=== PATIENT | female | born 1970 | race African-American/Black ===

== ENCOUNTER 2017-03-02 16:03 | Emergency (ER) | payer MEDICAID ==
--- NOTE | 2017-03-02 17:24 | ER Document Report ---
ED Medical Screen (RME) - General Chief Complaint: Shortness Of Breath Stated Complaint: DIFFICULTY BREATHING Time Seen by Provider: 03/02/17 17:16 Mode of Arrival: Ambulatory Information source: Patient TRAVEL OUTSIDE OF THE [place] IN LAST 30 DAYS: No - HPI Patient complains to provider of: Shortness of breath, generalized weakness, midsternal chest pain Onset: This morning Onset/Duration: Gradual Quality of pain: Achy Severity: Moderate Associated Symptoms: Body/muscle aches, Chest pain, Dizzy/lightheaded, Shortness of breath, Weakness Notes: 03/02/17 17:23 It is a 46-year-old female who presents to the emergency room complaining of shortness of breath, dyspnea on exertion, lightheadedness, nonproductive cough, headache, midsternal chest pain, has a history of iron deficiency anemia with transfusions, last time she was transfused with back in June, she had outpatient labs done with Dr. Marsh her manufacturer recently and they are in the process of setting her up for another outpatient transfusion, however symptoms worsened today and she was sent to the emergency room by Dr. Rodriguez for further evaluation and treatment - Related Data Allergies/Adverse Reactions: No Known Allergies Allergy (Verified 03/02/17 16:07) Past Medical History - Past Medical History Cardiac Medical History: Reports: Hx Hypercholesterolemia, Hx Hypertension Neurological Medical History: Reports: Hx Migraine Renal/ Medical History: Denies: Hx Peritoneal Dialysis - Immunizations Hx Diphtheria, Pertussis, Tetanus Vaccination: Yes - utd Physical Exam - Vital signs Vitals: Temp Pulse Resp BP Pulse Ox 98.7 F 91 20 107/65 100 03/02/17 16:07 03/02/17 16:07 03/02/17 16:07 03/02/17 16:07 03/02/17 16:07 Course - Vital Signs Vital signs: Temp Pulse Resp BP Pulse Ox 98.7 F 91 20 107/65 100 03/02/17 16:07 03/02/17 16:07 03/02/17 16:07 03/02/17 16:07 03/02/17 16:07
[2017-03-02 18:40] LABS: ABSOLUTE BASOPHILS # (AUTO) 0.1 10^3/uL (0.0-0.2); ABSOLUTE EOSINOPHILS # (AUTO) 0.1 10^3/uL (0.0-0.6); ABSOLUTE MONOCYTES (AUTO) 0.7 10^3/uL (0.1-1.4); ABSOLUTE NEUT (AUTO) 10.1 10^3/uL (1.7-8.2); BASOPHILS % (AUTO) 0.9 % (0-2); EOSINOPHILS % (AUTO) 0.9 % (0-6); HEMATOCRIT 28.8 % (36.0-47.0); HEMOGLOBIN 8.3 g/dL (12.0-15.5); HGB HCT DIFFERENCE -3.9; LYMPHOCYTES % (AUTO) 21.3 % (13-45); MEAN CORPUSCULAR HEMOGLOBIN 18.2 pg (27.0-33.4); MONOCYTES % (AUTO) 5.2 % (3-13); RED BLOOD COUNT 4.59 10^6/uL (3.72-5.28); RED CELL DISTRIBUTION WIDTH 18.7 % (11.5-14.0); SEGMENTED NEUTROPHILS % (AUTO) 71.7 % (42-78); WHITE BLOOD COUNT 14.1 10^3/uL (4.0-10.5)
[2017-03-02 18:54] LABS: ALANINE AMINOTRANSFERASE 21 U/L (9-52); ALBUMIN 3.9 g/dL (3.5-5.0); ALKALINE PHOSPHATASE 78 U/L (38-126); ANION GAP 12 (5-19); ASPARTATE AMINO TRANSFERASE 18 U/L (14-36); BILIRUBIN,DIRECT 0.3 mg/dL (0.0-0.4); BILIRUBIN,TOTAL 0.3 mg/dL (0.2-1.3); BLOOD UREA NITROGEN 18 mg/dL (7-20); CALCIUM 9.5 mg/dL (8.4-10.2); CARBON DIOXIDE 24 mmol/L (22-30); CHLORIDE 100 mmol/L (98-107); CREATINE KINASE 103 U/L (30-135); CREATININE RESULT 0.96 mg/dL (0.52-1.25); GLUCOSE 155 mg/dL (75-110); POTASSIUM 4.2 mmol/L (3.6-5.0); SODIUM 135.9 mmol/L (137-145); TOTAL PROTEIN 7.6 g/dL (6.3-8.2)
[2017-03-02 18:58] LABS: ANISOCYTOSIS 2+; HELMET CELLS SLIGHT; HYPOCHROMASIA 3+; MICROCYTOSIS 3+; OVALOCYTES 1+; PLATELET CLUMPS PRESENT; POLYCHROMASIA SLIGHT; TARGET CELLS SLIGHT
[2017-03-02 19:00] LABS: MEAN CORPUSCULAR VOLUME 63 fl (80-97); POIKILOCYTOSIS SLIGHT
[2017-03-02 19:01] LABS: TOXIC GRANULATION SLIGHT
[2017-03-02 19:07] LABS: CREATINE KINASE MB < 0.22 ng/mL (<4.55); TROPONIN I < 0.012 ng/mL
--- NOTE | 2017-03-02 19:16 | RADIOLOGY REPORT (SQ) ---
EXAM DESCRIPTION: CHEST PA/LAT COMPLETED DATE/TIME: 03/02/2017 6:57 pm REASON FOR STUDY: sob COMPARISON: 05/05/2013 EXAM PARAMETERS: NUMBER OF VIEWS: two views TECHNIQUE: Digital Frontal and Lateral radiographic views of the chest acquired. RADIATION DOSE: NA LIMITATIONS: none FINDINGS: LUNGS AND PLEURA: No acute opacities, masses or pneumothorax. No pleural effusion. MEDIASTINUM AND HILAR STRUCTURES: No masses or contour abnormalities. HEART AND VASCULAR STRUCTURES: Heart normal size. No evidence for failure. BONES: No acute findings. HARDWARE: None in the chest. OTHER: No other significant finding. IMPRESSION: No acute findings. TECHNICAL DOCUMENTATION: JOB ID: [id number] [employer]- All Rights Reserved
[2017-03-02] MEDS ORDERED: PROCHLORPERAZINE EDISYLATE INJ 10 MG/2 ML VIAL IV ONE (19:20)
[2017-03-02] MEDS ORDERED: DIPHENHYDRAMINE HCL 50 MG/ML VIAL IV ONE (19:20)
[2017-03-02] MEDS ORDERED: KETOROLAC TROMETHAMINE INJ/PF 30 MG/1 ML SDV IV ONE (19:20)
[2017-03-02] MEDS ORDERED: NORMAL SALINE 1000 ML 1,000 ML IV ONE (19:21)
--- NOTE | 2017-03-02 19:23 | ER Document Report ---
ED General - General Chief Complaint: Shortness Of Breath Stated Complaint: DIFFICULTY BREATHING Time Seen by Provider: 03/02/17 17:16 Mode of Arrival: Ambulatory Notes: Patient is a 46-year-old female who presents with 1 week of a headache that she describes as a severe, constant, bitemporal throbbing headache. Nothing improves or worsens her headache. States that this is a very typical headache for her that was gradual in onset and has worsened since that time. She denies any focal weakness, numbness or altered mental status. No fever. She also notes that she has had intermittent shortness of breath it is not present at the time of my assessment. Denies any chest pain, syncope, or exertional dyspnea. She saw her primary care doctor today and was referred to the emergency department. She has no prior history of DVT or pulmonary embolus. No history of cardiac disease. No history of aortic disease or connective tissue disorders. TRAVEL OUTSIDE OF THE [place] IN LAST 30 DAYS: No - Related Data Allergies/Adverse Reactions: No Known Allergies Allergy (Verified 03/02/17 16:07) Past Medical History - General Information source: Patient - Social History Smoking Status: Never Smoker Chew tobacco use (# tins/day): No Frequency of alcohol use: None Drug Abuse: None Lives with: Family Family History: CAD, Hypertension Patient has suicidal ideation: No Patient has homicidal ideation: No - Past Medical History Cardiac Medical History: Reports: Hx Hypercholesterolemia, Hx Hypertension Neurological Medical History: Reports: Hx Migraine Renal/ Medical History: Denies: Hx Peritoneal Dialysis Surgical Hx: Negative - Immunizations Hx Diphtheria, Pertussis, Tetanus Vaccination: Yes - utd Review of Systems - Review of Systems Notes: Constitutional: Negative for fever. HENT: Negative for sore throat. Eyes: Negative for visual changes. Cardiovascular: Negative for chest pain. Respiratory: Positive for shortness of breath. Gastrointestinal: Negative for abdominal pain, vomiting or diarrhea. Genitourinary: Negative for dysuria. Musculoskeletal: Negative for back pain. Skin: Negative for rash. Neurological: Positive for headaches, negative for weakness or numbness. 10 point ROS negative except as marked above and in HPI. Physical Exam - Vital signs Vitals: Temp Pulse Resp BP Pulse Ox 98.7 F 91 20 107/65 100 03/02/17 16:07 03/02/17 16:07 03/02/17 16:07 03/02/17 16:07 03/02/17 16:07 Interpretation: Normal Notes: PHYSICAL EXAMINATION: GENERAL: Well-appearing, well-nourished and in no acute distress. HEAD: Atraumatic, normocephalic. EYES: Pupils equal round and reactive to light, extraocular movements intact, sclera anicteric, conjunctiva are normal. ENT: nares patent, oropharynx clear without exudates. Moist mucous membranes. NECK: Normal range of motion, supple without lymphadenopathy LUNGS: Breath sounds clear to auscultation bilaterally and equal. No wheezes rales or rhonchi. HEART: Regular rate and rhythm without murmurs ABDOMEN: Soft, nontender, normoactive bowel sounds. No guarding, no rebound. No masses appreciated. EXTREMITIES: Normal range of motion, no pitting or edema. No cyanosis. NEUROLOGICAL: Face symmetric. Tongue protrudes midline. Extraocular motions intact. Pupils are 2 mm and equally reactive. Normal speech, normal gait. 5 out of 5 strength in both the distal and proximal upper and lower extremities bilaterally. Sensation is grossly intact throughout. Finger to nose testing normal. Pronator drift normal. PSYCH: Normal mood, normal affect. SKIN: Warm, Dry, normal turgor, no rashes or lesions noted. Course - Re-evaluation Re-evalutation: 03/02/17 19:21 Patient presents with multiple complaints including shortness of breath, lightheadedness, and a migraine headache. Her shortness of breath: Chest x-ray is clear without evidence of a pneumothorax or an acute infiltrate. EKG is unremarkable and a troponin is negative. Her vital signs, clinical history and absence of risk factors make an acute pulmonary embolus or aortic dissection highly unlikely. Patient PERC criteria negative. Symptoms been ongoing for the past 1 week. The headache appears to be most consistent with tension versus migrainous type headache. Headache was not maximal in onset, patient has no focal neurologic deficits, no nuchal rigidity, vital signs within normal limits, no papilledema, and patient is overall well in appearance. Patient states that this is identical to her prior headaches which she has an almost a daily basis. Based on clinical history and examination I do not suspect an acute subarachnoid hemorrhage, dural venous sinus thrombosis, acute meningitis, or intercranial mass. Given my low clinical suspicion for any acute life- threatening etiology, I do not feel advanced neuro imaging or laboratory testing is indicated at this time. Will proceed with headache cocktail and reassess. 03/02/17 20:58 Patient has had complete resolution of all of her symptoms including her shortness of breath and headache. She remains without neurologic deficits. Vitals remained within normal limits at this time. She remains without tachypnea or tachycardia at time of my repeat assessment. I have informed her about her anemia and she already has plans scheduled for outpatient iron infusions. She does follow with hematology and has had elevated platelets in the past. She does not have a transfusion requirement at this time. At this time will discharge with return precautions and follow-up recommendations. Verbal discharge instructions given a the bedside and opportunity for questions given. Medication warnings reviewed. Patient is in agreement with this plan and has verbalized understanding of return precautions and the need for primary care follow-up in the next 24-72 hours. - Vital Signs Vital signs: Temp Pulse Resp BP Pulse Ox 98.7 F 91 22 H 122/61 100 03/02/17 16:07 03/02/17 16:07 03/02/17 19:00 03/02/17 21:00 03/02/17 21:01 - Laboratory Result Diagrams: 03/02/17 18:23 03/02/17 18:23 Laboratory results interpreted by me: 03/02/17 03/02/17 18:23 18:23 WBC 14.1 H Hgb 8.3 L Hct 28.8 L MCV 63 L MCH 18.2 L MCHC 29.0 L RDW 18.7 H Plt Count 776 H Absolute Neutrophils 10.1 H Sodium 135.9 L Glucose 155 H - Diagnostic Test Radiology reviewed: Image reviewed, Reports reviewed Radiology results interpreted by me: 03/02/17 21:00 Chest x-ray: No acute infiltrate or pneumothorax - EKG Interpretation by Me Additional EKG results interpreted by me: 03/02/17 21:01 Normal sinus rhythm. Rate 90. No ST elevations or depressions. QTC is 470. Discharge - Discharge Clinical Impression: Thrombocytosis Iron deficiency anemia Qualifiers: Iron deficiency anemia type: other iron deficiency Qualified Code(s): D50.8 - Other iron deficiency anemias Migraine headache Qualifiers: Migraine type: unspecified Status migrainosus presence: with status migrainosus Intractability: not intractable Qualified Code(s): G43.901 - Migraine, unspecified, not intractable, with status migrainosus Condition: Good Disposition: HOME, SELF-CARE Additional Instructions: You have been seen in the Emergency Department (ED) for a headache. Please use Tylenol (acetaminophen) or Motrin (ibuprofen) as needed for symptoms, but only as written on the box. As we have discussed, please follow up with your primary care doctor as soon as possible regarding today's ED visit and your headache symptoms. Call your doctor or return to the ED if you have a worsening headache, sudden and severe headache, confusion, slurred speech, facial droop, weakness or numbness in any arm or leg, extreme fatigue, or other symptoms that concern you. Your blood tests do show that your blood count is low but not a level where you need to get a blood transfusion. However it is very important that you follow- up with your solution developer regarding your low red blood cell count as well as your elevated platelets that you have had in the past. Referrals: HERBERT ASHBY MD [Primary Care Provider] - Follow up tomorrow
[2017-03-02 21:18] VITALS: BP 122/61
--- NOTE | 2017-03-02 23:43 | EKG REPORT ---
SEVERITY:- NORMAL ECG - SINUS RHYTHM : Confirmed by: Konrad Mclean 02-Mar-2017 23:42:43
[2017-03-05 15:58] LABS: PATH REVIEW PATHOLOGIST REVIEWED
== END 2017-03-02 21:32 | disposition home or self-care (01) ==
LOC: ER 16:03
DX: D47.3 Essential (hemorrhagic) thrombocythemia (principal); D50.8 Other iron deficiency anemias; R06.02 Shortness of breath; G43.901 Migraine, unspecified, not intractable, with status migrainosus; E78.00 Pure hypercholesterolemia, unspecified; I10 Essential (primary) hypertension
CPT/HCPCS: 93005; 99285; 96361; 96374; 96375; 36415; 82553; 82550; 85025; 80053; 84484; 83880; 71020; 93010; J1200; J1885; J0780; J7030

== ENCOUNTER 2017-03-27 08:00 | Outpatient (CLI) | payer MEDICAID ==
[~2017-03-27 08:00] MED LIST: ACETAMINOPHEN 325 MG TABLET PO PRN; DIPHENHYDRAMINE HCL 50 MG/ML VIAL IV PRN; IRON DEXTRAN COMPLEX 25 MG in NORMAL SALINE 100 ML IV PRN; IRON DEXTRAN COMPLEX 775 MG in NORMAL SALINE 500 ML IV PRN; NORMAL SALINE 250 ML IV PRN
[2017-03-27 10:14] VITALS: BP 109/81
== END 2017-03-27 14:17 | disposition home or self-care (01) ==
LOC: II 08:00 → 5TH 08:04 → II 14:17
PROVIDERS: ATTEND Internal Medicine
PROC: 3E033GC Introduction of Other Therapeutic Substance into Peripheral Vein, Percutaneous Approach (ICD-10-PCS; principal; 2017-03-27)
DX: D50.9 Iron deficiency anemia, unspecified (principal)
CPT/HCPCS: 96367; 96375; J3490; J1200; J1750; J7040; 96365; 96366

== ENCOUNTER 2017-04-03 08:07 | Outpatient (CLI) | payer MEDICAID ==
[~2017-04-03 08:07] MED LIST changes: -IRON DEXTRAN COMPLEX 25 MG in NORMAL SALINE 100 ML IV PRN; -IRON DEXTRAN COMPLEX 775 MG in NORMAL SALINE 500 ML IV PRN; +IRON DEXTRAN COMPLEX 800 MG in NORMAL SALINE 500 ML IV PRN
[2017-04-03 09:00] VITALS: BP 126/69
== END 2017-04-03 12:40 | disposition home or self-care (01) ==
LOC: II 08:07 → 5TH 08:08 → II 12:40
PROVIDERS: ATTEND Internal Medicine
PROC: 3E033GC Introduction of Other Therapeutic Substance into Peripheral Vein, Percutaneous Approach (ICD-10-PCS; principal; 2017-04-03)
DX: D50.0 Iron deficiency anemia secondary to blood loss (chronic) (principal)
CPT/HCPCS: 96365; 96366; 96374; 96360; J3490; J1200; J1750; J7040; 96375

== ENCOUNTER 2017-04-10 08:38 | Outpatient (CLI) | payer MEDICAID ==
[~2017-04-10 08:38] MED LIST changes: +IRON DEXTRAN COMPLEX 300 MG in NORMAL SALINE 500 ML IV PRN
[2017-04-10 09:29] VITALS: BP 129/67
== END 2017-04-10 13:08 | disposition home or self-care (01) ==
LOC: II 08:38 → 5TH 08:42 → II 13:08
PROVIDERS: ATTEND Internal Medicine
PROC: 3E033GC Introduction of Other Therapeutic Substance into Peripheral Vein, Percutaneous Approach (ICD-10-PCS; principal; 2017-04-10)
DX: D50.0 Iron deficiency anemia secondary to blood loss (chronic) (principal)
CPT/HCPCS: 96367; 96375; J3490; J1200; J1750; J7040; 96365; 96366

== ENCOUNTER 2017-04-17 08:45 | Outpatient (CLI) | payer MEDICAID ==
[~2017-04-17 08:45] MED LIST changes: -IRON DEXTRAN COMPLEX 300 MG in NORMAL SALINE 500 ML IV PRN
[2017-04-17 09:08] VITALS: BP 133/82
== END 2017-04-17 12:59 | disposition home or self-care (01) ==
LOC: II 08:45 → 5TH 08:51 → II 12:59
PROVIDERS: ATTEND Internal Medicine
PROC: 3E033GC Introduction of Other Therapeutic Substance into Peripheral Vein, Percutaneous Approach (ICD-10-PCS; principal; 2017-04-17)
DX: D50.0 Iron deficiency anemia secondary to blood loss (chronic) (principal)
CPT/HCPCS: 96365; 96366; 96375; J3490; J1200; J1750; J7040; 96367

== ENCOUNTER → 2017-07-26 | Outpatient (CLI) | payer MEDICAID | LOC: OD 11:08 | PROVIDERS: ATTEND Specialist | DX: N92.0 Excessive and frequent menstruation with regular cycle (principal) | CPT/HCPCS: 36415 ==

== ENCOUNTER 2017-12-12 06:06 | Day surgery (SDC) | payer MEDICAID ==
[2017-12-10 12:09] LABS: HEMATOCRIT 36.3 % (36.0-47.0); HEMOGLOBIN 12.1 g/dL (12.0-15.5); MEAN CORPUSCULAR HEMOGLOBIN 28.1 pg (27.0-33.4); MEAN CORPUSCULAR HGB CONC 33.5 g/dL (32.0-36.0); MEAN CORPUSCULAR VOLUME 84 fl (80-97); PLATELET COUNT 442 10^3/uL (150-450); RED BLOOD COUNT 4.32 10^6/uL (3.72-5.28)
[2017-12-10 12:10] LABS: APPEARANCE,URINE SLIGHTLY-CLOUDY; BILIRUBIN,URINE NEGATIVE (NEGATIVE); COLOR,URINE YELLOW; GLUCOSE, URINE NEGATIVE (NEGATIVE); KETONES,URINE NEGATIVE (NEGATIVE); LEUKOCYTE ESTERASE,URINE NEGATIVE (NEGATIVE); NITRITE,URINE NEGATIVE (NEGATIVE); PROTEIN,URINE NEGATIVE (NEGATIVE)
--- NOTE | 2017-12-10 14:08 | EKG REPORT ---
SEVERITY:- NORMAL ECG - SINUS RHYTHM : Confirmed by: Matt Wilcox MD 10-Dec-2017 14:07:42
[~2017-12-12 06:06] MED LIST changes: -ACETAMINOPHEN 325 MG TABLET PO PRN; +CEFAZOLIN 1 GM/D5W RTU 1 GM/50 ML RTUPB IV PRN; -DIPHENHYDRAMINE HCL 50 MG/ML VIAL IV PRN; -IRON DEXTRAN COMPLEX 800 MG in NORMAL SALINE 500 ML IV PRN; +LACTATED RINGERS 1000 ML IV PRN; +LIDOCAINE 0.5% INJ-PF (5 MG/ML) 50 ML SDV SUBCUT PRN; -NORMAL SALINE 250 ML IV PRN
[2017-12-12] MEDS ORDERED: MIDAZOLAM 2 MG/2 ML INJ ONE (06:53)
[2017-12-12] MEDS ORDERED: PROPOFOL INJ 200 MG/20 ML VIAL IV ONE (06:53)
[2017-12-12] MEDS ORDERED: FENTANYL CITRATE INJ/PF 100 MCG/2 ML AMPUL ONE (06:53)
[2017-12-12] MEDS ORDERED: ONDANSETRON HCL INJ/PF 4 MG/2 ML SDV ONE (06:53)
[2017-12-12] MEDS ORDERED: DIPHENHYDRAMINE HCL 50 MG/ML VIAL IV PRN (08:49)
[2017-12-12] MEDS ORDERED: PROMETHAZINE HCL INJ 25 MG/1 ML VIAL IV PRN (08:49)
[2017-12-12] MEDS ORDERED: FENTANYL CITRATE INJ/PF 100 MCG/2 ML AMPUL IV PRN ×3 (08:49)
[2017-12-12] MEDS ORDERED: ACETAMINOPHEN 100 ML IV ONE (09:16)
[2017-12-12] MEDS ORDERED: KETOROLAC TROMETHAMINE INJ/PF 30 MG/1 ML SDV ONE (09:17)
[2017-12-12] MEDS: FENTANYL CITRATE INJ/PF 100 MCG/2 ML AMPUL ONE ×2 (09:18→09:30)
[2017-12-12] MEDS ORDERED: OXYCODONE-ACETAMINOPHEN 5-325 MG TABLET PO PRN (09:35)
[2017-12-12] MEDS ORDERED: MORPHINE SULFATE 10 MG/ML INJ INJ PRN (09:35)
[2017-12-12] MEDS ORDERED: PROMETHAZINE HCL INJ 25 MG/1 ML VIAL IM PRN (09:36)
[2017-12-12] MEDS ORDERED: PHENYLEPHRINE HCL INJ/PF 10 MG/1 ML SDV ONE (10:50)
[2017-12-12] MEDS ORDERED: GLYCOPYRROLATE INJ 0.4 MG/2 ML VIAL ONE (10:50)
[2017-12-12] MEDS ORDERED: SUCCINYLCHOLINE CHLORIDE INJ 200 MG/10 ML VIAL ONE (10:50)
[2017-12-12] MEDS ORDERED: LIDOCAINE 2% INJ-PF (20 MG/ML) 2 ML AMPUL ONE (10:50)
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
[2017-12-12 13:20] VITALS: BP 122/71
[2017-12-12] MEDS ORDERED: IBUPROFEN 800 MG TABLET PO SCH (14:00)
== END 2017-12-12 11:35 | disposition home or self-care (01) ==
LOC: OROUT 06:06
PROVIDERS: ATTEND Specialist
DX: N84.0 Polyp of corpus uteri (principal); D25.0 Submucous leiomyoma of uterus; N92.0 Excessive and frequent menstruation with regular cycle; I10 Essential (primary) hypertension; K21.9 Gastro-esophageal reflux disease without esophagitis; E11.9 Type 2 diabetes mellitus without complications; D64.9 Anemia, unspecified; E66.9 Obesity, unspecified; Z86.718 Personal history of other venous thrombosis and embolism; Z68.41 Body mass index [BMI] 40.0-44.9, adult
CPT/HCPCS: 58561; 58563; 93005; 36415 ×2; 82962; 84132; 85027; 81025; 81001; 88305 ×2; 93010; J2250; J0690; J3010; J3490 ×2; J1885; J2370; J0330; J2405; J2704; J0131; 952

== ENCOUNTER → 2020-03-31 | Outpatient (CLI) | payer OTHER ==
--- NOTE | 2020-03-31 09:45 | WOMENS IMAGING REPORT ---
EXAM DESCRIPTION: BILAT SCREENING MAMMO W/CAD IMAGES COMPLETED DATE/TIME: 03/31/2020 9:00 am REASON FOR STUDY: Z12.31 ENCOUNTER FOR SCREENING MAMMOGRAM FOR MALIGNANT NEOPLASM OF BREAST Z12.31 ENCNTR SCREEN MAMMOGRAM FOR MALIGNANT NEOPLASM OF CHARIS COMPARISON: 2012 EXAM PARAMETERS: Standard craniocaudal and mediolateral oblique views of each breast recorded using digital acquisition. Read with the assistance of CAD. .[facility] - [employer] Operator Version 9.2 LIMITATIONS: None. FINDINGS: No suspicious masses, suspicious calcifications or architectural distortion. No areas of c oncern. IMPRESSION: NEGATIVE MAMMOGRAM. BIRADS 1 BREAST DENSITY: b. There are scattered areas of fibroglandular density. BIRAD: ASSESSMENT: 1 NEGATIVE RECOMMENDATION: ROUTINE SCREENING Please continue yearly bilateral screening mammography/tomosynthesis in March 2021 COMMENT: The patient has been notified of the results by letter per MQSA requirements. Additional no tification policies are in place for contacting patient with suspicious or incomplete findings. Quality ID #[id number]: The [employer] recommends an annual screening mammogram for women aged 40 years or over. This facility utilizes a reminder system to ensure that all patients receive reminder letters, and/or direct phone calls for appointments. This includes reminders for routine scr eening mammograms, diagnostic mammograms, or other Breast Imaging Interventions when appropriate. Th is patient will be placed in the appropriate reminder system. TECHNICAL DOCUMENTATION: FINDING NUMBER: (1) ASSESSMENT: (1) JOB ID: [id number] 2010 [employer]- All Rights Reserved Reading location - IP/workstation name: [email or web address]
== END ==
LOC: WI 08:24
PROVIDERS: ATTEND Physician Assistant
DX: Z12.31 Encounter for screening mammogram for malignant neoplasm of breast (principal)
CPT/HCPCS: 77067